=== PATIENT | male | born 1940 | race Caucasian/White ===

== ENCOUNTER 2017-01-26 20:30 | Emergency (ER) | payer OTHER, MEDICARE ==
[~2017-01-26] VITALS: Ht 167.6 cm; Wt 63.5 kg
--- NOTE | 2017-01-26 22:19 | RADIOLOGY REPORT ---
EXAMINATION: XR FOOT, RIGHT CLINICAL INFORMATION: Injury. Swelling. Pain. COMPARISON: None TECHNIQUE: AP, lateral, and oblique views of the right foot. FINDINGS: No fracture. No dislocation. There is periarticular erosions of the third and fourth and fifth metatarsal head at the MTP joints. Mild joint narrowing without erosion or spur of the IP joint of the toes. No soft tissue calcification Small plantar calcaneal spur. IMPRESSION: 1. No acute abnormality. 2. Periarticular erosions of the head of the second third and fifth metatarsal at the MTP joint.
--- NOTE | 2017-01-26 22:21 | RADIOLOGY REPORT ---
EXAMINATION: XR ANKLE, RIGHT CLINICAL INFORMATION: Injury and swelling COMPARISON: None TECHNIQUE: AP, lateral, and mortise views of the right ankle. FINDINGS: Soft tissue swelling around the ankle. No fracture. No dislocation. Ankle mortise is congruent. Small plantar calcaneal spur IMPRESSION: Soft tissue swelling around the ankle. No acute osseous abnormality
--- NOTE | 2017-01-26 23:47 | ED ANKLE/FOOT INJURY COMPLAINT ---
History of Present Illness General Chief Complaint: Lower Extremity Injury Stated Complaint: RIGHT ANKLE/FOOT BRUISED AND SWOLLEN Source: patient Exam Limitations: autism Vital Signs & Intake/Output Vital Signs & Intake/Output Vital Signs Date Time Temp Pulse Resp B/P B/P Pulse O2 O2 Flow FiO2 Mean Ox Delivery Rate 01/26 2045 97.5 62 16 178/76 97 Room Air Allergies Coded Allergies: MDX - Streptomycin (STREPTOMYCIN) (UNKNOWN 07/12/11) Triage Note: PT TO TRIAGE WITH HIS CAREGIVER FOR C/O RIGHT FOOT/ANKLE SWELLING AND BRUISING x1DAY. NO KNOWN INJURY. HX OF AUTISM, HTN,HIGH CHOL,DIABETES. NO OTHER COMPLAINTS. VSS. Triage Nurses Notes Reviewed? yes HPI: Patient presents for evaluation of bruising in the arch of the right foot with associated swelling of the dorsal aspect of the foot. Patient denies any associated pain or known trauma however history is limited given the patient's past medical history (he lives in a prison). Patient is unable to provide substantial history. Past History Travel History Traveled to [place] past 21 day No Medical History Any Pertinent Medical History? 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 No Review of Systems Review of Systems Constitutional: Reports: no symptoms. EENTM: Reports: no symptoms. Respiratory: Reports: no symptoms. Cardiovascular: Reports: no symptoms. GI: Reports: no symptoms. Genitourinary: Reports: no symptoms. Musculoskeletal: Reports: see HPI. Skin: Reports: no symptoms. Neurological/Psychological: Reports: no symptoms. Hematologic/Endocrine: Reports: no symptoms. Immunologic/Allergic: Reports: no symptoms. All Other Systems: Reviewed and Negative Physical Exam Physical Exam Leg/Knee/Thigh Left: see below Comments: Gen.: Well-nourished, well-developed, no acute respiratory distress. Head: Normocephalic, atraumatic. Eyes: Normal inspection bilaterally Ears: Normal inspection bilaterally Nose: Normal inspection, nasal cannula in place Throat/mouth : Moist mucosa Neck: Supple, full range of motion, no goiter Heart: Regular rate and rhythm Lungs: Quiet respirations Back: Normal range of motion Extremities: Right foot: Ecchymoses of the arch with pale yellow swelling of the dorsal aspect of the right foot. Sensation is intact. Patient moves the right foot and ankle well and spontaneously. Neurologic: Cranial nerves grossly intact, speech is clear Skin: warm and dry Psychiatric: Calm, cooperative, no apparent delusions or hallucinations Progress Differential Diagnosis: fracture, dislocation, contusion, sprain Plan of Care: Tylenol as needed for pain. Cool compresses and elevation over the next 48 hours. Decrease activities if possible. Follow-up with your primary care physician for reevaluation this week. Return if any concerns or sudden worsening. Please note that there might be incidental findings in your evaluation that are unrelated to the current emergency department visit. Please notify your primary care doctor about this emergency department visit in order to obtain and review all of the testing performed so that these incidental findings can be monitored as needed. If you had an x-ray performed, please understand that some fractures may not be seen on the initial set of x-rays. If your symptoms persist you might need a repeat set of x-rays to check for such a fracture. If you had a laceration evaluated, please understand that foreign bodies such as glass or wood may not be visible to the naked eye or on plain x-rays. If the wound becomes red, swollen, increasingly more painful or if there is any drainage from the wound, please have it reevaluated by a physician for the possibility of a retained foreign body. Thank you for choosing the [facility] Emergency Department for your care. It was a pleasure to serve you today. Leland Dash M.D. [facility] Diagnostic Imaging: Discussed w/RAD: Radiology Read. Radiology Impression: PATIENT: KARISSA MEJIA PRESENT AGE: 76 PATIENT ACCOUNT NO: [id number] : 39 LOCATION: ER ORDERING PHYSICIAN: LELAND WARREN DO (TBS) SERVICE DATE: 01/26/17 EXAM TYPE: RAD - XRY-FOOT COMPLETE, R EXAMINATION: XR FOOT, RIGHT CLINICAL INFORMATION: Injury. Swelling. Pain. COMPARISON: None TECHNIQUE: AP, lateral, and oblique views of the right foot. FINDINGS: No fracture. No dislocation. There is periarticular erosions of the third and fourth and fifth metatarsal head at the MTP joints. Mild joint narrowing without erosion or spur of the IP joint of the toes. No soft tissue calcification Small plantar calcaneal spur. IMPRESSION: 1. No acute abnormality. 2. Periarticular erosions of the head of the second third and fifth metatarsal at the MTP joint. DICTATED BY: KOTA ANNE MD DATE/TIME DICTATED:09/02 DIRECTOR [facility] DATE/TIME TRANSCRIBED:01/26/172213 CONFIDENTIAL, DO NOT COPY WITHOUT APPROPRIATE AUTHORIZATION. <Electronically signed in Other Vendor System> SIGNED BY: KOTA ANNE MD 01/26/172218, PATIENT: KARISSA MEJIA PRESENT AGE: 76 PATIENT ACCOUNT NO: [id number] : 39 LOCATION: [facility] ORDERING PHYSICIAN: LELAND WARREN DO ( TBS) SERVICE DATE: 01/26/17 EXAM TYPE: RAD - XRY-TWO VIEW RIGHT ANKLE EXAMINATION: XR ANKLE, RIGHT CLINICAL INFORMATION: Injury and swelling COMPARISON: None TECHNIQUE: AP, lateral, and mortise views of the right ankle. FINDINGS: Soft tissue swelling around the ankle. No fracture. No dislocation. Ankle mortise is congruent. Small plantar calcaneal spur IMPRESSION : Soft tissue swelling around the ankle. No acute osseous abnormality DICTATED BY: KOTA ANNE MD DATE/TIME DICTATED:01/26/172215 DIRECTOR [facility] DATE/TIME TRANSCRIBED:01/26/172215 CONFIDENTIAL, DO NOT COPY WITHOUT APPROPRIATE AUTHORIZATION. <Electronically signed in Other Vendor System> SIGNED BY: KOTA ANNE MD 01/26/172220 Comments: The patient has no calf tenderness to suggest DVT. He does not take any anticoagulants currently. I suspect patient's bruising secondary to minor trauma. Plan symptomatic care. Departure Departure Disposition: HOME OR SELF CARE Condition: Stable Clinical Impression Primary Impression: Traumatic ecchymosis of right foot Qualifiers: Encounter type: initial encounter Qualified Code: S90.31XA - Contusion of right foot, initial encounter Referrals: ARMAND STRINGER,RICO Turner (PCP/Family) Additional Instructions: Elevation and cool compresses of the right foot over the next 48 hours. Tylenol as needed for pain. Follow-up with your primary care doctor in 5-7 days if not improving. Return if any concerns or sudden worsening. Please note that there might be incidental findings in your evaluation that are unrelated to the current emergency department visit. Please notify your primary care doctor about this emergency department visit in order to obtain and review all of the testing performed so that these incidental findings can be monitored as needed. If you had an x-ray performed, please understand that some fractures may not be seen on the initial set of x-rays. If your symptoms persist you might need a repeat set of x-rays to check for such a fracture. If you had a laceration evaluated, please understand that foreign bodies such as glass or wood may not be visible to the naked eye or on plain x-rays. If the wound becomes red, swollen, increasingly more painful or if there is any drainage from the wound, please have it reevaluated by a physician for the possibility of a retained foreign body. Thank you for choosing the [facility] Emergency Department for your care. It was a pleasure to serve you today. Leland Dash M.D. [facility] Departure Forms: Customer Survey General Discharge Information
[2017-01-26 23:54] VITALS: BP 180/77
== END 2017-01-27 00:12 ==
LOC: ERH 20:30
DX: S90.31XA Contusion of right foot, initial encounter (principal); E11.9 Type 2 diabetes mellitus without complications; X58.XXXA Exposure to other specified factors, initial encounter; Y93.9 Activity, unspecified; Y92.9 Unspecified place or not applicable
CPT/HCPCS: 73600-RT; 73630-RT

== ENCOUNTER 2017-03-26 01:49 | Inpatient (IN) | payer OTHER, MEDICARE ==
[~2017-03-26] VITALS: Ht 162.6 cm; Wt 62.2 kg
[~2017-03-26 01:49] MED LIST: ACCUPRIL40 M1 PO; AMLODIPINE BESYL5 M1 PO; AVODART0.5 M1 PO; COLACE100 M1 PO; FERROUS SULFAT325 M3 PO; FIBERCON625 M1; FLOMAX0.4 M1 PO; FLUVOXAMINE MA100 M2 PO; HYDROCHLOROTHIA25 M1 PO; LABETALOL HCL200 M1 PO; LANTUS SOL100 UNIT/1 SC; LASIX20 M1 PO; MELOXICAM15 M1 PO; METFORMIN HCL1000 M1 PO; NEXIUM40 M1 PO; POTASSIUM CHLO20 ME2 PO; PRAVACHOL40 M1 PO; SENNA8.6 M3 PO
--- NOTE | 2017-03-26 10:16 | Operative Report ---
Operative/Inv Procedure Report Surgery Date: 03/26/17 Name of Procedure: Right total knee arthroplasty Pre-Operative Diagnosis: Right knee osteoarthritis primary Post-Operative Diagnosis: Same Estimated Blood Loss: 50ml to 100ml Surgeon/Story Editor: BISHNU STRINGER,Cristian WEINSTEIN Anesthesia: block Implants: [place] triathlon total knee system--size 4 femur, size 4 tibia, 9 mm cruciate retaining polyethylene, 33 patella Drains: None Specimens: Femoral, tibial, patellar bone Microbiology: Urine Tourniquet: 53 minutes Complications: None Condition: Stable Operative Indication: Patient is a 76-year-old man with a very long history of bilateral knee pain. He underwent left total knee arthroplasty in the past. He had ongoing and increasing symptoms involving his right knee. He was diagnosed with severe end- stage osteoarthritis of the right knee. Skin and measures laterally only short- term relief. He wished to proceed with total knee arthroplasty the decision medically was made by his caretakers at the facilities currently at. Risks benefits and rotation were discussed with the staff that are part of his caretaking team. They wish to proceed with the surgical procedure. Risks benefits and expectations included but were not limited to persistent knee pain, need for subsequent surgery, infection, DVT, anesthesia risks, injury to blood vessel or nerve Operative/Procedure Note Note: Patient was brought to the operating room and transferred to the operating table. Once under appropriate anesthesia the right lower extremity was prepped and draped in standard fashion. Preoperative IV antibiotic's were given prophylactically. Leg was elevated exsanguinated and tourniquet was inflated to 300 mm of pressure. A standard anterior incision was made for anticipated medial parapatellar approach to the knee. Incision was taken down sharply to the line retinaculum. A to the knee with a medial parapatellar approach. The knee patella was subluxed and the knee was flexed. Osteophytes were excised. The intramedullary femoral cutting guide was pinned in place for a 6 valgus cut. The cut was made while protecting the soft tissues. The femur was incised was size 4. Size 4 cutting jig was pinned in place and the 4 cuts were made while protecting the soft tissues. Tibia was then subluxed forward as the remnants of the posterior horns of the medial and lateral meniscal tissues were excised. PCL was recessed. Soft tissues were balanced. The external tibial alignment guide was placed and the tibial cut was made there was significant defect in the posterior medial corner of the knee with severe eburnated bone cut was made. The tibia was incised was size 4. Trial was then done with the size 4 femur size 4 tibia and a 9 mm any polyethylene. I was satisfied with the full extension. Good mid flexion stability and full flexion to gravity. I then measured the patella and the appropriate thickness was removed and then replaced with a size 33 patella. The 3 lug holes were drilled. Once I confirmed my rotation and position of my components and marked my rotation of the tibia, drilled my 2 lug holes for the femur and then removed all fluid and instruments. I then used the appropriate sized tibial punch to complete the preparation of the tibia. I needed to use the saw to cut through the eburnated bone in order to avoid stress fracture while doing the tibial punch. This was done under direct vision and facilitated the completion of the tibial punch. All instruments were removed copious irrigation followed. I used the anterior chamfer bone to plug the distal femur to minimize postoperative hemarthrosis. Once the cement was ready on the back table and it was applied to the dry clean bony surfaces of the tibia. Size 4 tibial component was impacted in place and excess cement was removed with curettes. Cement was applied to the dry clean bony surfaces of the femur. The size 4 femoral component was impacted in place and excess cement was removed with curettes. The 9 mm cruciate retaining polyethylene was inserted and the knee was taken out to full extension. Cement was applied to the dry clean bony surfaces of the patella. The size 33 patella was impacted in place and excess cement was removed with a knife. During the cement hardening process, I didn't appear articular pericapsular injection of a cocktail which included ropivacaine with epinephrine and Toradol for postoperative pain and inflammation management. Once cement was hardening took the knee through range of motion. Excess cement were removed. I removed the trial polyethylene after determining that patient had good soft tissue balancing medial and laterally as well as anterior posteriorly. I then copiously irrigated tibial tray. I made sure there was no soft tissue, bone fragments or cement fragments within the tibial tray and then I impacted the definitive size 9 mm cruciate retaining polyethylene in place. The locking mechanism was confirmed. The knee was taken through range of motion. Again I was satisfied with the stability in full extension mid flexion and full flexion to gravity. There was no need for lateral release since there was good patellofemoral tracking. Tourniquet was deflated at 53 minutes hemostasis was obtained. Closure followed after copious irrigation. Copious irrigation followed every level of closure. Retinacular incision and minimal quadricep tendon extension was closed with interrupted #1 Vicryl sutures. Subcutaneous tissues closed in 2 layers with 2-0 Vicryl and skin was closed with a running 3-0 Vicryl suture with the knee in flexion. Appropriate just his were applied and patient was awakened and taken to recovery room in good condition no intraoperative complications Discharge Disposition: PACU
--- NOTE | 2017-03-26 16:35 | PN- Orthopedic ---
Subjective Subjective: Patient not reporting any significant discomfort post operatively. Has on Q in place. Denies chest pain, shortness of breath and difficulty breathing. Denies nausea and vomitting. Has joel catheter in place. Has yet to ambulate. Objective Vital Signs and I&Os General: Alert and oriented, no acute distress Cardiac: RRR, s1s2 Pulm: CTA bilaterally Abd: Non-tender, non-distended Extremities: Moves all extremities, distal sensation intact. Skin warm and well perfused. DP pulses 2+ bilaterally. Bilateral calves soft and non-tender. Surgical site: Left knee: Swelling noted to proximal aspect of joint capsule, concern for a hematoma. Dressing dry and intact, reinfoced over swelling. No ecchymosis noted presently. Thigh compartment soft, joint capsule soft. Assessment/Plan Assessment/Plan This is a 76 year old male, POD 0, s/p right total knee replacement. PMH includes HTN, HLD, GERD, BPH, Anemia, DEP. Post operative course signficant for probable hematoma noted in proximal aspect of joint capsule in the immediate post operative period. Ice and dressing reinforcement implemented immediately with good response. -Continue ice to affected site, continue to assess swelling and distal pulses -Vancomycin for abx ppx -Coumadin for dvt ppx to start tonight, ALPS for mechanical ppx -F/U labwork in am: CBC, BEP, INR -OOB, ambulate, wbat, knee immobilizer if quad function compromised with block -D/C joel tomorrow am -GI ppx to include colace and senna -Advance diet as tolerated -D/C IVF tomorrow am if tolerating po -Discussed with Dr. Rogers Core Measures/Miscellaneous Venous Thromboembolism VTE Risk Factors: Age > 40, Surgery VTE Contraindications: No Contraindications VTE Diagnosis: No Beta Joseph Is Beta Joseph a Home Med? Yes If Yes, Was This Ordered Today? Yes Antibiotics Is Patient on Antibiotics? Yes If Yes: prophylaxis
[2017-03-26 17:05] VITALS: BP 140/72
[2017-03-26 19:09] VITALS: BP 130/80
[2017-03-26 21:00] VITALS: BP 132/84
[2017-03-27 01:01] VITALS: BP 180/86
[2017-03-27 05:04] VITALS: BP 166/80
--- NOTE | 2017-03-27 08:01 | PN- Orthopedic ---
See Addendum Subjective Subjective: No complaints. Difficult to understand. Anesthesia at bedside assessing thigh hematoma, which is apparently "much better" than when noticed yesterday, which was apparently pre-on q placement. Blood pressure improved after given home meds. Objective Vital Signs and I&Os Vital Signs Date Time Temp Pulse Resp B/P B/P Pulse O2 O2 Flow FiO2 Mean Ox Delivery Rate 03/27 0504 98.5 68 20 166/80 94 Room Air 03/27 0101 97.6 61 20 180/86 96 Room Air 03/26 2146 62 132/84 / 2100 97.9 62 20 132/84 95 Room Air 03/26 1909 97.6 60 20 130/80 97 Room Air 03/26 1705 97.7 65 16 140/72 95 Room Air Intake & Output 03/27 0800 03/27 0000 03/26 1600 03/26 0800 03/26 0000 03/25 1600 Intake Total 1050 Output Total 450 Balance 600 Intake, IV 600 Intake, Oral 450 Output, Urine 450 Patient 137 lb Weight Physical Exam: General - alert. appears comfortable. no acute distress. accompanied by stuff animals in bed. Lungs - clear bilaterally. no w/r/r. Cardiac - s1s2. reg. Abdomen - soft. nontender. Extremities - right knee dressing c/d/i. thigh is soft, without evidence of hematoma at this time. on q in place. athrombics active b/l. calves soft and nontender. grossly nvi. Current Medications: Current Medications Sig/Pradip Start time Last Medication Dose Route Stop Time Status Admin Acetaminophen 1,000 MG .STK-MED ONE 03/26 1008 DC IV 03/26 1009 Amlodipine Besylate 5 MG DAILY 03/27 1000 AC PO Docusate Sodium 100 MG DAILY 03/27 1000 DC PO Docusate Sodium 100 MG BID 03/27 1000 UNVr PO Fentanyl Citrate 200 MCG .STK-MED ONE 03/26 1007 DC IM 03/26 1008 Ferrous Sulfate 325 MG TID 03/26 1600 AC 03/26 PO 2147 Fluvoxamine Maleate 100 MG QPM 03/26 2200 AC 03/27 PO 0130 Furosemide 20 MG DAILY 03/27 1000 AC PO Hydrochlorothiazide 25 MG DAILY 03/27 1000 AC PO Hydromorphone HCl 2 MG .STK-MED ONE 03/26 1007 DC IM 03/26 1008 Insulin Detemir 10 UNITS DAILY 03/27 1000 AC SC Labetalol HCl 200 MG BID 03/26 2200 AC 03/26 PO 2146 Lisinopril 10 MG DAILY 03/27 1000 AC PO Metformin HCl 1,000 MG BID 03/26 2200 AC 03/26 PO 2147 Midazolam HCl 4 MG .STK-MED ONE 03/26 1008 DC IM 03/26 1009 Morphine Sulfate 2 MG Q3P PRN 03/26 1715 AC 03/27 IV 0630 Morphine Sulfate 4 MG Q3P PRN 03/26 1715 AC IV Omeprazole 40 MG DAILY AC 03/27 0700 AC 03/27 PO 0610 Ondansetron HCl 4 MG Q6P PRN 03/26 1715 AC IV Oxycodone/ 1 TAB Q4P PRN 03/26 171 AC Acetaminophen PO Oxycodone/ 2 TAB Q4P PRN 03/26 1715 AC 03/27 Acetaminophen PO 0130 Potassium Chloride 20 MEQ DAILY 03/27 1000 AC PO Pravastatin Sodium 40 MG 1700 03/27 1700 AC PO Ropivacaine 500 ML ONCE ONE 03/26 1330 AC ON-Q Ball 1 BAG INJ 03/28 0709 Senna 187 MG AT BEDTIME 03/26 2200 AC 03/26 PO 2147 Sodium Chloride 1,000 ML .[id number] 03/26 1715 DC 03/26 IV 1938 Tamsulosin HCl 0.4 MG DAILY 03/27 1000 AC PO Tranexamic Acid 2,000 MG .STK-MED ONE 03/26 1057 DC IV 03/26 1058 Vancomycin HCl 1,000 MG ONCE ONE 03/26 2200 DC 03/26 Sodium Chloride 250 ML IV 03/26 2259 2145 Vancomycin HCl 1,000 MG ONCE 03/26 0000 DC Sodium Chloride 250 ML IV 03/26 2359 Warfarin Sodium 5 MG COUMADIN 1700 ONE 03/26 1700 DC 03/26 PO 03/26 1701 1938 Assessment/Plan Assessment/Plan This is a 76 year old male with hx MR, autism, htn, hld, gerd, bph anemia, depression, POD#1, s/p R TKR, improved hematoma pain appears to be controlled at this time tolerating diet. d/c iv fluids joel catheter removed f/u labs coumadin accordingly - dvt ppx maykel-operative vanco complete PT eval on q removal and dressing change tomorrow, POD#2 home meds appear to be ordered, including blood pressure medications will d/w Dr. Rogers Core Measures/Miscellaneous Venous Thromboembolism VTE Risk Factors: Age > 40, Surgery VTE Contraindications: No Contraindications VTE Diagnosis: No Beta Joseph Is Beta Joseph a Home Med? Yes If Yes, Was This Ordered Today? Yes Antibiotics Is Patient on Antibiotics? Yes If Yes: prophylaxis If Yes: prophylaxis
[2017-03-27 08:44] LABS: ABSOLUTE BASOPHIL COUNT 0 /CUMM (0.0-0.2); ABSOLUTE EOSINOPHIL COUNT 0 /CUMM (0.0-0.7); ABSOLUTE GRANULOCYTE CT 7.6 /CUMM (1.4-6.5); ABSOLUTE LYMPH COUNT 0.8 /CUMM (1.2-3.4); ABSOLUTE MONOCYTE COUNT 1.1 /CUMM (0.10-0.60); BASOPHIL % 0.3 % (0.0-2.0); EOSINOPHIL % 0.5 % (0-5); HEMATOCRIT 27.2 % (42-52); MEAN CORPUSCULAR HGB 30.4 PG (27.0-31.0); MEAN CORPUSCULAR HGB CONC 33.8 G/DL (33.0-37.0); MEAN CORPUSCULAR VOLUME 89.9 FL (80.0-94.0); MEAN PLATELET VOLUME 10.4 FL (7.4-10.4); PLATELET COUNT 112 /CUMM (130-400); RBC DISTRIBUTION WIDTH 12.8 % (11.5-14.5); RED BLOOD CELL CT 3.02 /CUMM (4.70-6.10); WHITE BLOOD CELL COUNT 9.6 /CUMM (4.8-10.8)
[2017-03-27 10:01] VITALS: BP 140/80
[2017-03-27 10:11] VITALS: BP 140/80
[2017-03-27 14:07] VITALS: BP 142/80
[2017-03-27 22:08] VITALS: BP 132/60
[2017-03-28 06:30] VITALS: BP 130/60
--- NOTE | 2017-03-28 08:07 | PN- Orthopedic ---
See Addendum Subjective Subjective: No complaints at this time. On q pulled out by patient yesterday. Bedsearch in progress for STR. Apparently the patient had nausea / vomiting yesterday, but currently not reporting this. Objective Vital Signs and I&Os Vital Signs Date Time Temp Pulse Resp B/P B/P Pulse O2 O2 Flow FiO2 Mean Ox Delivery Rate 03/28 0630 99.0 70 20 130/60 93 Room Air 03/27 2208 98.6 67 20 132/60 93 03/27 2056 140/70 03/27 1435 Room Air 03/27 1407 97.7 77 20 142/80 96 Room Air 03/27 1033 72 158/78 03/27 1033 72 158/78 03/27 1033 72 158/78 03/27 1033 72 158/78 03/27 1011 97.7 70 20 140/80 94 Room Air 03/27 1001 97.7 70 20 140/80 94 Room Air Intake & Output 03/28 0800 03/28 0000 03/27 1600 03/27 0800 03/27 0000 Intake Total 150 117 3158 1050 Output Total 200 750 550 450 Balance -80 -30 450 600 Intake, IV 20 600 600 Intake, Oral 100 720 400 450 Number 0 Bowel Movements Output, Urine 200 750 550 450 Patient 137 lb Weight Physical Exam: General - alert. appears comfortable. no acute distress. accompanied by stuff animals in bed. Lungs - clear bilaterally. no w/r/r. Cardiac - s1s2. reg. Abdomen - soft. nontender. Extremities - warm bilaterally. dressing removed. incision approximated with steri strips. no erythema or exudates appreciated. on q no longer in place. athrombics active b/l. calves soft and nontender. nvi. Current Medications: Current Medications Sig/Pradip Start time Last Medication Dose Route Stop Time Status Admin Amlodipine Besylate 5 MG DAILY 03/27 1000 AC 03/27 PO 103 Docusate Sodium 100 MG BID 03/27 1000 AC 03/27 PO 2056 Ferrous Sulfate 325 MG TID 03/26 1600 AC 03/27 PO 2056 Fluvoxamine Maleate 100 MG QPM 03/27 2200 AC 03/27 PO 2056 Fluvoxamine Maleate 100 MG QPM 03/26 2200 DC 03/27 PO 013 Furosemide 20 MG DAILY 03/27 1000 AC 03/27 PO 1033 Hydrochlorothiazide 25 MG DAILY 03/27 1000 AC 03/27 PO 1033 Insulin Detemir 10 UNITS DAILY 03/27 1000 AC 03/27 SC 1032 Insulin Human Regular 0 TIDAC/HS 03/27 2100 DC SD Labetalol HCl 200 MG BID 03/260 AC 03/27 PO 2055 Lisinopril 10 MG DAILY 03/27 1000 AC 03/27 PO 103 Metformin HCl 1,000 MG BID 03/26 2200 AC 03/27 PO 2056 Morphine Sulfate 2 MG Q3P PRN 03/26 1715 AC 03/27 IV 0630 Morphine Sulfate 4 MG Q3P PRN 03/26 1715 AC 03/28 IV 0009 Omeprazole 40 MG DAILY AC 03/27 07 AC 03/28 PO 0637 Ondansetron HCl 4 MG Q6P PRN 03/26 171 AC 03/27 IV 1421 Oxycodone/ 1 TAB Q4P PRN 03/26 171 AC Acetaminophen PO Oxycodone/ 2 TAB Q4P PRN 03/26 1715 AC 03/28 Acetaminophen PO 0420 Potassium Chloride 20 MEQ DAILY 03/27 1000 AC 03/27 PO 1032 Pravastatin Sodium 40 MG 1700 03/27 1700 AC 03/27 PO 1548 Ropivacaine 500 ML ONCE ONE 03/26 1330 CAN ON-Q Ball 1 BAG INJ 03/28 0709 Senna 187 MG AT BEDTIME 03/26 2200 AC 03/27 PO 2056 Tamsulosin HCl 0.4 MG DAILY 03/27 1000 AC 03/27 PO 1033 Warfarin Sodium 5 MG COUMADIN 1700 ONE 03/27 1700 DC 03/27 PO 03/27 1701 1548 Results Last 48 Hours of Labs: Laboratory Tests 03/28 03/27 0626 0622 Chemistry Sodium (137 - 145 mmol/L) Pending 137 Potassium (3.5 - 5.1 mmol/L) Pending 3.7 Chloride (98 - 107 mmol/L) Pending 102 Carbon Dioxide (22 - 30 mmol/L) Pending 26 Anion Gap (5 - 16) Pending 10 BUN (9 - 20 mg/dL) Pending 20 Creatinine (0.7 - 1.2 mg/dL) Pending 0.7 Estimated GFR (>60 ml/min) > 60 BUN/Creatinine Ratio (7 - 25 %) Pending 28.6 H Coagulation PT (9.4 - 12.5 SEC) Pending 13.0 H INR (0.90 - 1.17) Pending 1.24 H Hematology CBC w Diff Pending NO MAN DIFF REQ WBC (4.8 - 10.8 /CUMM) Pending 9.6 RBC (4.70 - 6.10 /CUMM) Pending 3.02 L Hgb (14.0 - 18.0 G/DL) Pending 9.2 L Hct (42 - 52 %) Pending 27.2 L MCV (80.0 - 94.0 FL) Pending 89.9 MCH (27.0 - 31.0 PG) Pending 30.4 RDW (11.5 - 14.5 %) Pending 12.8 Plt Count (130 - 400 /CUMM) Pending 112 L MPV (7.4 - 10.4 FL) Pending 10.4 Gran % (42.2 - 75.2 %) 79.0 H Lymphocytes % (20.5 - 51.1 %) 8.5 L Monocytes % (1.7 - 9.3 %) 11.7 H Eosinophils % (0 - 5 %) 0.5 Basophils % (0.0 - 2.0 %) 0.3 Absolute Granulocytes (1.4 - 6.5 /CUMM) 7.6 H Absolute Lymphocytes (1.2 - 3.4 /CUMM) 0.8 L Absolute Monocytes (0.10 - 0.60 /CUMM) 1.1 H Absolute Eosinophils (0.0 - 0.7 /CUMM) 0 Absolute Basophils (0.0 - 0.2 /CUMM) 0 PUBS MCHC (33.0 - 37.0 G/DL) Pending 33.8 Assessment/Plan Assessment/Plan This is a 76 year old male with hx MR, autism, htn, hld, gerd, bph anemia, depression, POD#2 s/p R TKR pain appears to be controlled at this time tolerating diet f/u labs coumadin accordingly - dvt ppx continue PT dressing changed. 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 Rogers Core Measures/Miscellaneous Venous Thromboembolism VTE Risk Factors: Age > 40, Surgery VTE Contraindications: No Contraindications VTE Diagnosis: No Beta Joseph Is Beta Joseph a Home Med? Yes If Yes, Was This Ordered Today? Yes Antibiotics Is Patient on Antibiotics? Yes If Yes: prophylaxis
[2017-03-28 08:33] LABS: PT 17.5 SEC (9.4-12.5)
--- NOTE | 2017-03-28 09:25 | RADIOLOGY REPORT ---
EXAMINATION: XR KNEE, RIGHT CLINICAL INFORMATION: Status post right TKA. COMPARISON: There are no recent prior studies available for comparison. Comparison was made to an x-ray series from 06/11/2012. TECHNIQUE: AP and lateral of the right knee were obtained post TKA. FINDINGS: There are sequelae of a right knee TKA. The prostheses appear in good position. There are postoperative changes in the periarticular soft tissues. There is a small bony fragment along the lateral aspect of the knee joint at the level of the superior tibial prosthesis. IMPRESSION: 1. Postprocedure images from right TKA.
--- NOTE | 2017-03-28 10:13 | Patient Discharge Instructions ---
Discharge Instructions General Discharge Information You were seen/treated for: Right knee osteoarthritis primary You had these procedures: Surgery Date: 03/26/17 Name of Procedure: Right total knee arthroplasty Watch for these problems: fever>101.3, increased pain, redness/swelling/drainage No bath, but you may shower: Yes Other wound care: dry guaze dressing change daily, right knee. leave steri strips in place until they fall off. Diet Continue normal diet: No Recommended Diet: Diabetic DAILY Calorie limit of: 2000 Additional DIET Information: coumadin considerations Activity Full Activity/No Limits: No Activity Self Limited: Yes Activity Limited to: Weight bear as tolerated Other activity limits: rolling walker assistance Acute Coronary Syndrome Inclusion Criteria At DC or during hospital stay patient has or had the following: ACS DIAGNOSIS No Discharge Core Measures Meds if any: Prescribed or Continued at Discharge Meds if any: NOT Prescribed or Continued at Discharge Congestive Heart Failure Inclusion Criteria At DC or during hospital stay patient has or had the following: CHF DIAGNOSIS No Discharge Core Measures Meds if any: Prescribed or Continued at Discharge Meds if any: NOT Prescribed or Continued at Discharge Cerebrovascular accident Inclusion Criteria At DC or during hospital stay patient has or had the following: CVA/TIA Diagnosis No Discharge Core Measures Meds if any: Prescribed or Continued at Discharge Meds if any: NOT Prescribed or Continued at Discharge Venous thromboembolism Inclusion Criteria VTE Diagnosis No VTE Type NONE VTE Confirmed by (Test) NONE Discharge Core Measures - Per Current guidelines, there needs to be overlap - treatment for the first 5 days of Warfarin therapy. - If discharged on Warfarin prior to 5 days of - overlap therapy, the patient will need to be - assessed for post discharge needs including - *Post discharge parental anticoagulation - *Warfarin and/or parental anticoagulation education - *Follow up date to check INR post discharge At least 5 days overlap therapy as Inpatient No Meds if any: Prescribed or Continued at Discharge Note: Overlap Therapy is Warfarin and Anticoagulant Meds if any: NOT Prescribed or Continued at Discharge
[2017-03-28] MEDS ORDERED: PERCOCET 5-3251 EACH PO (10:15)
[2017-03-28] MEDS ORDERED: COUMADIN5 M2 PO (10:15)
[2017-03-28 10:33] LABS: ABSOLUTE BASOPHIL COUNT 0 /CUMM (0.0-0.2); ABSOLUTE EOSINOPHIL COUNT 0 /CUMM (0.0-0.7); ABSOLUTE GRANULOCYTE CT 4.5 /CUMM (1.4-6.5); ABSOLUTE LYMPH COUNT 0.7 /CUMM (1.2-3.4); ABSOLUTE MONOCYTE COUNT 0.7 /CUMM (0.10-0.60); BASOPHIL % 0.3 % (0.0-2.0); EOSINOPHIL % 0.7 % (0-5); GRANULOCYTE % 75.9 % (42.2-75.2); HEMATOCRIT 25.1 % (42-52); MEAN CORPUSCULAR HGB CONC 33.5 G/DL (33.0-37.0); MEAN CORPUSCULAR VOLUME 89.4 FL (80.0-94.0); MEAN PLATELET VOLUME 10.5 FL (7.4-10.4); RBC DISTRIBUTION WIDTH 13.2 % (11.5-14.5); RED BLOOD CELL CT 2.81 /CUMM (4.70-6.10); WHITE BLOOD CELL COUNT 5.9 /CUMM (4.8-10.8)
--- NOTE | 2017-03-28 10:50 | Surgical Discharge Summary ---
Visit Information Visit Dates Admission Date: 03/26/17 Discharge Date: 03/29/17 History of Present Illness Chief Complaint: Right knee pain related to primary osteoarthritis Medical History Blood Transfusion Hx: No Neurological: AUTISM Cardiovascular: hypertension, hyperlipidemia Renal: URINARY RETENTION Musculoskeletal: osteoarthritis Psychiatric: anxiety, OCD Endocrine: diabetes Cancer(s): prostate cancer History of MRSA: No History of VRE: No History of CDIFF: No Isolation History: Standard Surgical History Pertinent Surgical History: L TKA HERNIA REPAIR Family History Relations & Conditions If Any: Relation not specified for: Family history unknown Psychosocial History Where Do You Live? [facility] Who Do You Live With? 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 Sammarinese Review of Systems: see h&p Hospital Course Course Attending Physician: BISHNU STRINGER,[facility] Primary Care Physician: RICO ACUNA MD Hospital Course: Electively scheduled right total knee arthroplasty on 03/26/17 for right knee primary osteoarthritis. Post-operatively he was started on coumadin for dvt prophylaxis, with dose adjustments as per daily blood draws. [facility], as he has baseline MR and is from a correction. Pain control transitioned from iv to oral medication. Evaluated and treated by PT daily, with recommendations for short term rehab placement. Otherwise uneventful hospitalization, with plans for rehab on post-op day#3. Complications: None Allergies: Coded Allergies: streptomycin (UNKNOWN 03/23/17) Significant Procedures: R TKR See operative report Disposition Summary Disposition Principal Diagnosis: Right knee osteoarthritis Additional Diagnosis: same as above s/p Right total knee arthroplasty (03/26/17) Discharge Disposition: SNF Discharge Instructions General Discharge Information Code Status: Full Code Patient's Diet: diabetic diet, coumadin considerations Patient's Activity: weight bearing as tolerated. rolling walker assistance Follow-Up Instructions/Appts: dry guaze dressing change daily, right knee blood draws for PT/INR, coumadin dose adjustment accordingly, for goal INR 2-3 follow up with in 3-4 weeks Medications at Discharge Discharge Medications: Stop taking the following medications: Meloxicam (Meloxicam) 15 MG TABLET ORAL DAILY Continue taking these medications: Metformin HCl (Metformin HCl) 1,000 MG TABLET 1 Tablet ORAL TWICE DAILY Labetalol HCl (Labetalol HCl) 200 MG TABLET 1 Tablet ORAL TWICE DAILY Ferrous Sulfate (Ferrous Sulfate) 325 MG (65 MG IRON) TABLET 1 Tablet ORAL THREE TIMES DAILY Sennosides (Senna) 8.6 MG TABLET 2 Tablet ORAL NIGHTLY Potassium Chloride (Potassium Chloride) 20 MEQ TAB.ER.PRT 1 Tablet ORAL DAILY Fluvoxamine Maleate (Fluvoxamine Maleate) 100 MG TABLET 1 Tablet ORAL Every night Pravastatin Sodium (Pravachol) 40 MG TABLET 1 Tablet ORAL DAILY Tamsulosin HCl (Flomax) 0.4 MG CAP.ER.24H 1 Capsule ORAL DAILY Quinapril HCl (Accupril) 40 MG TABLET 1 Tablet ORAL DAILY Hydrochlorothiazide (Hydrochlorothiazide) 25 MG TABLET 1 Tablet ORAL DAILY Esomeprazole (Nexium) 40 MG CAPSULE.DR 1 Capsule ORAL DAILY Furosemide (Lasix) 20 MG TABLET 1 Tablet ORAL DAILY Insulin Glargine,Hum.rec.anlog (Lantus Solostar) 100 UNIT/ML (3 ML) INSULN.PEN 10 Units Inject into fatty tissue DAILY Amlodipine Besylate (Amlodipine Besylate) 5 MG TABLET 1 Tablet ORAL DAILY Dutasteride (Avodart) 0.5 MG CAPSULE 1 Capsule ORAL DAILY Calcium Polycarbophil (Fibercon) 625 MG TABLET 2 DAILY Docusate Sodium (Colace) 100 MG CAPSULE 1 Capsule ORAL DAILY Start taking the following new medications: Oxycodone HCl/Acetaminophen (Percocet 5-325 MG Tablet) 5 MG-325 MG TABLET 1 Tablet ORAL EVERY 4 HOURS NEEDED as needed for PAIN SCALE 1-4 Qty = 30 No Refills Oxycodone HCl/Acetaminophen (Percocet 5-325 MG Tablet) 5 MG-325 MG TABLET 2 Tablet ORAL EVERY 4 HOURS NEEDED as needed for PAIN SCALE 5-10 Qty = 30 No Refills Warfarin Sodium (Coumadin) 5 MG TABLET 1 Tablet ORAL DAILY Qty = 30 No Refills Instructions: dose adjustment as per blood draws, PT/INR, goal INR 2-3 Copies To: ARMAND STRINGER,RICO Turner
[2017-03-28 11:15] LABS: PLATELET COUNT 91 /CUMM (130-400)
[2017-03-28 14:54] VITALS: BP 120/58
[2017-03-28 22:54] VITALS: BP 158/60
[2017-03-29 06:00] VITALS: BP 168/70
--- NOTE | 2017-03-29 08:10 | PN- Orthopedic ---
Subjective Subjective: Awake, alert, OOB in chair Denies any pain - pt with MR, answers seem to be appropriate, does not appear to be in pain No bm yet. nauseated off and on since surgery but tolerating diet Objective Vital Signs and I&Os Vital Signs Date Time Temp Pulse Resp B/P B/P Pulse O2 O2 Flow FiO2 Mean Ox Delivery Rate 03/29 0600 99.0 68 20 168/70 96 Room Air 03/28 2254 99.6 85 20 158/60 94 Room Air 03/28 2226 85 158/60 03/28 1454 96.8 62 20 120/58 97 03/28 0946 70 130/60 03/28 0945 70 130/60 03/28 0945 70 130/60 03/28 0945 70 130/60 Intake & Output 03/29 0800 03/29 0000 03/28 1600 03/28 0800 03/28 0000 Intake Total 100 400 480 120 Output Total 275 200 450 200 Balance -175 200 30 -80 Intake, IV 200 0 20 Intake, Oral 100 200 480 100 Number 0 Bowel Movements Output, Urine 275 200 450 200 Physical Exam: General: alert and oriented times three Chest: clear anteriorly bilaterally, RRR Abd: soft, good bs Ext: warm, trace edema at right knee, no calf tenderness, positive sensate Wound: looks good, no drainage or erythema Assessment/Plan Assessment/Plan 76 yo male pod 3 s/p R TKR PT - WBAT zofran for nausea add toradol ?narcotics causing nausea bowel regimen STR when cleared Core Measures/Miscellaneous Venous Thromboembolism VTE Risk Factors: Age > 40, Surgery VTE Contraindications: No Contraindications VTE Diagnosis: No Beta Joseph Is Beta Joseph a Home Med? Yes If Yes, Was This Ordered Today? Yes Antibiotics Is Patient on Antibiotics? No If Yes: prophylaxis
[2017-03-29 08:49] LABS: PT 18.3 SEC (9.4-12.5)
[2017-03-29 09:01] LABS: ABSOLUTE BASOPHIL COUNT 0 /CUMM (0.0-0.2); ABSOLUTE EOSINOPHIL COUNT 0.1 /CUMM (0.0-0.7); ABSOLUTE LYMPH COUNT 0.9 /CUMM (1.2-3.4); ABSOLUTE MONOCYTE COUNT 0.6 /CUMM (0.10-0.60); BASOPHIL % 0.7 % (0.0-2.0); EOSINOPHIL % 2.2 % (0-5); GRANULOCYTE % 75.1 % (42.2-75.2); HEMATOCRIT 26.2 % (42-52); MEAN CORPUSCULAR HGB 30.6 PG (27.0-31.0); MEAN CORPUSCULAR HGB CONC 33.9 G/DL (33.0-37.0); MEAN CORPUSCULAR VOLUME 90.3 FL (80.0-94.0); PLATELET COUNT 107 /CUMM (130-400); RBC DISTRIBUTION WIDTH 13.1 % (11.5-14.5); WHITE BLOOD CELL COUNT 6.7 /CUMM (4.8-10.8)
[2017-03-29 12:44] VITALS: BP 168/60
[2017-03-29 13:16] VITALS: BP 168/60
[2017-03-29 13:46] VITALS: BP 120/70
== END 2017-03-29 18:35 | DRG 470 ==
LOC: 2NA 01:49 → SDA 01:49 → ENRESERV 15:16 → ENTRNSPT 16:07 → 2NA 16:35 → CMPTRNSPT 17:18 → ENPENDDIS 03-29 10:02 → 2NA 03-29 18:35
PROVIDERS: Physician Assistant; Physician Assistant Surgical; ADMIT Orthopaedic Surgery
PROC: 0SRC0J9 Replacement of Right Knee Joint with Synthetic Substitute, Cemented, Open Approach (ICD-10-PCS; principal; 2017-03-26)
DX: M17.11 Unilateral primary osteoarthritis, right knee (principal); E11.9 Type 2 diabetes mellitus without complications; D64.9 Anemia, unspecified; F84.0 Autistic disorder; I10 Essential (primary) hypertension; E78.5 Hyperlipidemia, unspecified; R33.9 Retention of urine, unspecified; F41.9 Anxiety disorder, unspecified; F42.9 Obsessive-compulsive disorder, unspecified; Z85.46 Personal history of malignant neoplasm of prostate; Z96.652 Presence of left artificial knee joint; Z79.4 Long term (current) use of insulin; M25.761 Osteophyte, right knee; N40.1 Benign prostatic hyperplasia with lower urinary tract symptoms; K21.9 Gastro-esophageal reflux disease without esophagitis
CPT/HCPCS: 2NAP; 73560-RT; 82436; 87086; 97110-GO; 97116-GO; 97161-GP; 97530-GO; C1713; J0131; J0171; J1885; J2405; J2795; J3370; J7040